=== PATIENT | male | born 2000 | race Hispanic/Latino ===

== ENCOUNTER 2020-10-12 11:39 | Emergency (ER) | payer OTHER, SELFPAY ==
[2020-10-13 19:15] LABS: SARS-CoV-2 PCR by NAA Not Detected (NotDetected)
== END 2020-10-12 12:05 | disposition home or self-care (01) ==
LOC: NAV ERS 11:39
DX: Z20.822 Contact with and (suspected) exposure to COVID-19 (principal)
CPT/HCPCS: 99283; U0003; U0005